=== PATIENT | male | born 1945 | race Caucasian/White ===

== ENCOUNTER 2023-04-08 12:19 | Emergency (ER) | payer MEDICARE, MEDICAID ==
[~2023-04-08] VITALS: Ht 157.5 cm; Wt 68.0 kg
[2023-04-08 12:24] VITALS: TEMP 98; O2SAT 99
[2023-04-08 15:26] LABS: BASOPHILS % 2.3 % (0.0-2.0); EOSINOPHILS % 13.1 % (0.0-5.0); HEMOGLOBIN. 13.7 g/dL (14.0-18.0); LYMPHOCYTES % 26.5 % (20.0-50.0); MEAN CORPUSCULAR HEMOGLOBIN 29.9 pg (28.0-32.0); MEAN CORPUSCULAR HGB CONC 32.7 g/dL (31.0-37.0); MEAN CORPUSCULAR VOLUME 91.4 fL (80.0-94.0); MEAN PLATELET VOLUME 8.2 fl (7.4-10.4); MONOCYTES % 8.4 % (2.0-8.0); NEUTROPHILS % 49.7 % (40.0-76.0); PLATELET 236 x1000/uL (130-400); RED BLOOD CELL COUNT 4.59 mill/uL (4.7-6.1); RED CELL DISTRIBUTION WIDTH 13.5 % (11.6-14.6); WHITE BLOOD COUNT 6.7 x1000/uL (4.5-11.0)
[2023-04-08 15:45] LABS: ALANINE AMINOTRANSFERASE 14 IU/L (10-49); ALBUMIN 4.1 g/dL (3.2-4.8); ASPARTATE AMINOTRANSFERASE 19 IU/L (<34); BILIRUBIN TOTAL 0.7 mg/dL (0.1-1.0); CALCIUM 9.1 mg/dL (8.7-10.4); CARBON DIOXIDE 27 mEq/L (21-32); CHLORIDE 105 mEq/L (98-107); CREATININE 0.7 mg/dL (0.6-1.3); GLUCOSE 91 mg/dL (70-105); POTASSIUM 4.1 mEq/L (3.5-5.1); PROTEIN TOTAL 6.8 g/dL (6.0-8.3); SODIUM 136 mEq/L (136-145); TROPONIN I HIGH SENSITIVITY 6 ng/L (3.0-53); UREA NITROGEN BLOOD 10 mg/dL (9-23)
[2023-04-08] MEDS: HYDROCODONE/ACETAMINOPHEN 7.5/325MG TABLET PO ONE (17:53)
[2023-04-08] MEDS ORDERED: IBUP-1523 MT (18:36)
[2023-04-08] MEDS ORDERED: HYDR-4001 MT (18:36)
[2023-04-08 18:45] LABS: TROPONIN I HIGH SENSITIVITY 5 ng/L (3.0-53)
[2023-04-08 19:10] VITALS: BP 136/73; PULSE 60; RESP 18
[2023-04-08] MEDS ORDERED: IOHEXOL-300 100 ML BOTTLE ONE (21:59)
== END 2023-04-08 19:15 | disposition home or self-care (01) ==
LOC: ER 12:19 → SUPCPDRO 04-09 10:26
DX: M54.2 Cervicalgia (principal); I10 Essential (primary) hypertension; Z98.890 Other specified postprocedural states
CPT/HCPCS: 99284; 71045; 80053; 83880; 85025; 84484; 36415; 93005; Q9967